=== PATIENT | female | born 1985 | race Caucasian/White ===

== ENCOUNTER 2021-02-24 12:21 | Emergency (ER) | payer BC, OTHER ==
[2021-02-24 14:42] LABS: RED BLOOD COUNT 5.48 M/UL (4.00-5.10); WHITE BLOOD COUNT 10.2 K/UL (4.5-11.0)
[2021-02-24 15:06] LABS: BUN/CREATININE RATIO 10 (0-10)
== END 2021-02-24 15:58 | disposition home or self-care (01) ==
LOC: ER1 12:21
PROVIDERS: Nurse Practitioner
DX: M54.2 Cervicalgia (principal); E78.5 Hyperlipidemia, unspecified; Z79.899 Other long term (current) drug therapy; Z88.6 Allergy status to analgesic agent; Z88.5 Allergy status to narcotic agent
CPT/HCPCS: 80053; 81001; 84703; 85025; 86140; 87086; 99283